=== PATIENT | female | born 1990 | race African-American/Black ===

== ENCOUNTER 2020-12-07 15:18 | Emergency (ER) | payer OTHER, SELFPAY ==
[2020-12-07 15:28] VITALS: BP 128/98; PULSE 66; RESP 16; TEMP 36.5; O2SAT 100
--- NOTE | 2020-12-07 15:52 | ED.FEMALEGU ---
HPI - Female Genitourinary General Chief complaint: Urogenital-Female Stated complaint: Lower Back Pain History of Present Illness HPI Narrative: This is a 30-year-old female comes in complaining with frequency, urgency and dysuria patient states is been going on for the past week and a half. Patient denies any fever nausea and/or vomiting patient denies really suspecting any STIs but would like to go ahead and be tested. At this point time she also would like to be treated Related Data Home Medications Medication Instructions Recorded Confirmed No Home Medications 12/07/20 12/07/20 Allergies Allergy/AdvReac Type Severity Reaction Status Date / Time No Known Allergies Allergy Unverified 12/07/20 15:33 Review of Systems Review of Systems: CONSTITUTIONAL: Denies fever, chills, or sweats. EYES: Denies visual changes, redness, or discharge. ENT: Denies rhinorrhea, congestion, sore throat, or otalgia. CARDIOVASCULAR:Denies chest pain, palpitations, or edema. RESPIRATORY: Denies cough or dyspnea. GASTROINTESTINAL: Denies abdominal pain, nausea, vomiting, or diarrhea. GENITOURINARY: Reports dysuria denies hematuria. SKIN:[Denies rash or itching. MUSCULOSKELETAL:Denies back pain, joint pain, or myalgia. NEUROLOGIC: Denies headache, numbness, or weakness. PSYCHIATRIC:Denies anxiety or depression PMFSH Comments At time as signature, I have reviewed and agree with nursing past medical, social, surgical and family history. Please see nursing chart for further information. There is no relevant family history pertinent to the presenting complaint. Exam Narrative: GENERAL:Well-appearing, well-nourished, and in no acute distress. HEAD:Normocephalic, atraumatic. EYES: PERRLA and EOMI. ENT: Nares clear, no rhinorrhea or epistaxis. Mucous membranes moist. NECK: Supple. CHEST: Clear to auscultation. No respiratory distress. HEART: Regular rate and rhythm. No murmur heard. Normal peripheral pulses. ABDOMEN: Soft, nontender, nondistended, normal active bowel sounds. Dysuria and frequency EXTREMITIES: Normal range of motion. No edema. SKIN: Warm, dry, no rash. NEURO: No focal deficits. Alert and oriented x3. 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 Discussion had about cystitis, STIs what to expect Vital Signs Vital signs: Vital Signs Temperature 97.7 F 12/07/20 15:28 Pulse Rate 66 12/07/20 15:28 Respiratory Rate 16 12/07/20 15:28 Blood Pressure 128/98 H 12/07/20 15:28 Pulse Oximetry 100 12/07/20 15:28 Temperature 97.7 F 12/07/20 15:28 Pulse Rate 66 12/07/20 15:28 Respiratory Rate 16 12/07/20 15:28 Blood Pressure 128/98 H 12/07/20 15:28 Pulse Oximetry 100 12/07/20 15:28 MDM - Female Genitourinary Differential Diagnosis Differential diagnosis: Likely urinary tract infection, bacterial vaginosis, trichomoniasis, cystitis and other (STI) Lab Data Attestation: I reviewed the patient's lab results. Labs: Lab Results 12/07/20 Range/Units 16:02 C.trachomatis RNA (TMA) Pending N.gonorrhoeae RNA (TMA) Pending T. vaginalis Amp RNA Pending Urine Glucose Negative Reference Range: Negative Urine Glucose Negative Reference Range: Negative Urine Bilirubin Negative Reference Range: Negative Urine Bilirubin Negative Reference Range: Negative Urine Ketone Negative Reference Range: Negative Urine Ketone Negative Reference Range: Negative Urine Specific [place] 1.025 Reference Range:1.001-1.035 Urine Specific Gravi
[2020-12-07] MEDS: cefTRIAXone 250 MG VIAL 500 MG IM (16:10)
[2020-12-07] MEDS: AZITHROMYCIN 250 MG TABLET 1000 MG PO (16:10)
== END 2020-12-07 19:09 | disposition home or self-care (01) ==
PROVIDERS: Emergency Provider Nurse Practitioner Family
DX: N30.90 Cystitis, unspecified without hematuria (principal)
CPT/HCPCS: 81003; 87070; 87077; 87491; 87591; 87661; 96372; 99214; A9270; G0463; J0696